=== PATIENT | male | born 1950 | race Caucasian/White ===

== ENCOUNTER 2025-03-05 07:35 | Inpatient (IN) ==
[2025-03-05] MEDS: SODIUM CHLORIDE 0.9% 1,000 ML IV ONE (08:12)
--- NOTE | 2025-03-05 08:13 | Emergency Department Note ---
Impression & Plan AMELIE (acute kidney injury), Weakness, Nausea, History of hepatocellular carcinoma ED Provider Note NAME: KIMBERLY CHANDLER AGE: 74 SEX: M : 1950 ARRIVES VIA: Walk-In INFORMANT: Patient ED PROVIDER(S): Fahad Varela DO CHIEF COMPLAINT: Unable to urinate HPI: Patient is a 74-year-old male with a past medical history of UTI, alcohol use disorder, hepatocellular cancer stage IV with cirrhosis who presents to the ER as he has been unable to urinate for the past 24 hours. He has not been eating or drinking much for the past 72 hours. He denies any headache or change in vision. No chest pain or shortness of breath. He does feel weak. No dysuria, urgency or frequency. No other exacerbating or remitting factors. ADDITIONAL HISTORY OBTAINED: is present at bedside notes that he has become weaker recently. Chronic Medical/Social Conditions Affecting Care: Per HPI PAST MEDICAL HISTORY:See Below PAST SURGICAL HISTORY:See Below FAMILY HISTORY:See Below SOCIAL HISTORY:See Below HOME MEDICATIONS:See Below ALLERGIES:See Below VITALS:See Below PHYSICAL EXAMINATION: GENERAL: Sitting up in bed, alert, well appearing, well nourished, no distress, non-toxic EYE EXAM: normal conjunctiva. PERRL and EOM's grossly intact. OROPHARYNX: mucous membranes are moist NECK: supple, no nuchal rigidity, no adenopathy, non-tender LUNGS: Clear to auscultation. Normal chest wall mechanics HEART: no murmurs, S1 normal and S2 normal ABDOMEN: abdomen soft, non-tender, normo-active bowel sounds, no masses, no rebound or guarding. UPPER EXTREMITIES: upper extremities are grossly normal. LOWER EXTREMITIES: No pitting edema. NEURO EXAM: Normal sensorium, cranial nerves II-XII grossly intact, normal speech, no gross weakness of arms, no gross weakness of legs. MEDICAL DECISION MAKING: Patient is a 74-year-old male who presents ER for the above-stated complaint. IV was established and blood work was obtained. Labs show no significant leukocytosis or anemia. INR at 1.5. BMP with creatinine 3.9 up from baseline of 1.5. LFTs and bilirubin were unremarkable. Lipase was normal. Patient was given IV fluids. Discussed case with the hospitalist as well as her care managers for further evaluation management treatment. Consults/Care Managements Discussions: Per MDM Triage Nursing notes reviewed. Limited review of prior medical records performed Vital Signs: reviewed and remarkable for no significant abnormalities Differential diagnosis: Differential diagnoses includes but is not limited to gastritis, peptic ulcer disease, GERD, gallbladder disease, pancreatitis, small bowel obstruction, appendicitis, diverticulitis, hernia, urinary tract infection, torsion, perforation, trauma, infectious. ER treatment provided: See below Diagnostics interpreted by me include EKG and cardiac monitoring as listed below: -Cardiac Monitoring: An order was placed for continuous cardiac monitoring. The monitor shows a rate of 70 with sinus rhythm. -ECG: Sinus rhythm rate of 59 Normal axis No PVCs QTc 459 -Laboratory studies:Interpreted by me as stated above in MDM and shown below. Imaging studies: Xrays: As interpreted by me:none CTs show: none Procedures:none Critical Care: None Past Med/Surg History Problem List (Updated 03/05/25 @ 12:54 by Fahad Varela DO) Nausea (Acute) Weakness (Acute) AMELIE (acute kidney injury) (Acute) Diarrhea Nausea & vomiting AMELIE (acute kidney injury) UTI (urinary tract infection) (Acute) Alcohol use disorder in remission Hepatocellular carcinoma Osteoporosis Adenomatous polyps Right lumbar radiculopathy Hip pain, right Spinal cord stimulator status Initially placed 03/2015 Battery replacement 09/26/2021 Alcoholic cirrhosis (Chronic) follows with [facility] Kilgore's esophagus (Chronic) Benign prostatic hyperplasia with urinary obstruction and other lower urinary tract symptoms (Chronic) Bilateral hearing loss (Chronic) Colonic polyp (Chronic) HTN (hypertension) (Chronic) controlled, stable History of hepatocellular carcinoma (Chronic) tx arterial chemoembolization 2016, wedge resection 2019 and again with arterial chemoembolization 04/2021, follows with [facility] q 6 months. "mild coagulopathy with INR 1.3" Spinal stenosis, lumbar (Chronic) Medical History History of hepatocellular carcinoma Osteoporosis Liver cirrhosis Kilgore esophagus Spinal stenosis Spinal cord stimulator status Arthritis BPH (benign prostatic hyperplasia) GERD (gastroesophageal reflux disease) Port-A-Cath in place Neuropathy Hypertension Liver cancer History of transfusion History of seizure History of chemotherapy Surgical History Hx of left cataract extraction Hx of right cataract extraction History of lumbar surgery History of colonoscopy with polypectomy History of tooth extraction History of resection of liver H/O esophagogastroduodenoscopy [place] teeth removed S/P cholecystectomy Family History Father Prostate cancer Diabetes Cancer, Onset Age: 69 Hypertension Brother Cancer, Onset Age: 68 Mother Myocardial infarction, Onset Age: 51 Grandmother (Maternal) Natural with probable cause suspected, Onset Age: 80 Grandfather (Maternal) Myocardial infarction, Onset Age: 50 Grandmother (Paternal) Natural deaths, Onset Age: 80 Other No family history of adverse response to anesthesia Denies family history of Ovarian cancer Breast cancer Colorectal cancer Social History Smoking Status: Former smoker Tobacco Type: Cigarettes Age Started Using Tobacco: 16; Age Quit Using Tobacco: 61; packs per day: 0; Cigarettes Per Day: 2-3 packs per day; Second Hand Exposure: No; Do You Dip or Chew Tobacco: No; Hx Alcohol Use: Yes (quit 2013) Hx Substance Use: No Preferred Language: French Communication Ability: Effective Visual Impairment: Limited Hearing Ability: Use of Hearing Aid Adult Daycare Coordinator Required: No Beliefs That Will Affect Care: None marital status: Current Living Situation: Spouse Current Living Situation Comment: Lives with and son current occupational status: retired How many Children do You have: 1 Feels Safe at Home: Yes Childhood Exposure to Second-Hand Smoke: Yes Diet: regular caffeine: Yes during the past year weight has: remained stable Dental Care, Regularly: Yes Physical Activity Frequency: 5-6 Times per Week Physical Activity Frequency Comment: Goes to gym twice a day Seatbelt Use: always Sunscreen Use: No Do you think of yourself as: straight/heterosexual Gender Identity: Male Assistive Devices: Denture - Upper, Denture - Lower, Glasses and Hearing Aid - Bilateral Allergies Allergies Allergy/AdvReac Type Severity Reaction Status Date / Time bee venom protein (honey bee) Allergy Severe Anaphylaxis Verified 03/04/25 12:51 Home Meds Home Medications Medication Instructions Recorded Confirmed finasteride 5 mg tablet 5 mg PO QAM 06/28/20 03/05/25 multivitamin 1 tab PO QAM 06/28/20 03/05/25 vit A 1,000 unit-C 60 mg-E 30 1 tab PO QAM 05/08/21 03/05/25 unit-zinc oxid-selenium AA-copper tablet (Vision Formula(J-J-Y-Zn-Se-Cu)) omeprazole 20 mg capsule,delayed 20 mg PO QAM 08/16/21 03/05/25 release baclofen 10 mg tablet 10 mg PO HS PRN cramps 03/06/22 03/05/25 alendronate 70 mg tablet 70 mg PO Q7D 09/04/22 03/05/25 cholecalciferol (vitamin D3) 25 25 mcg PO QAM 09/04/22 03/05/25 mcg (1,000 unit) capsule gabapentin 300 mg capsule 300 mg PO TID PRN Other 09/02/24 03/05/25 lisinopril 20 mg tablet 20 mg PO BID 09/02/24 03/05/25 amlodipine 10 mg tablet 10 mg PO QAM 10/27/24 03/05/25 lenvatinib 4 mg capsule (Lenvima) 12 mg PO .DAILY@NOON 01/28/25 03/05/25 hydrochlorothiazide 12.5 mg tablet 12.5 mg PO QAM 02/20/25 03/05/25 ondansetron 8 mg disintegrating 8 mg PO Q8H 03/04/25 03/05/25 tablet Results & Data (ED) Vital Signs Vital Signs - 24 hr 03/05/25 07:42 03/05/25 07:46 03/05/25 08:36 Temperature 36.1 C L Temperature Source Temporal Artery Scan Pulse Rate 69 58 L Respiratory Rate 16 Respiratory Effort / Characteristics Non-Labored Spontaneous Respiratory Depth Normal Respiratory Pattern Regular Blood Pressure 94/62 L Blood Pressure Mean 72 Pulse Oximetry 97 98 Oxygen Delivery Method Room Air Room Air Sepsis Recent Fever Within 48 Hours No Sepsis New/Unexplained Change in Mental Status N/A Sepsis Action Taken by Nursing No Action Required Laboratory Data 03/05/25 08:14 03/05/25 08:14 Lab Results 03/05/25 Range/Units 08:14 WBC 9.89 (4.8-10.8) K/ul RBC 4.51 L (4.70-6.10) M/uL Hgb 15.1 (14.0-18.0) g/dl Hct 44.7 (42.0-52.0) % MCV 99.1 (80.0-100.0) fL MCH 33.5 (25.0-34.0) pg MCHC 33.8 (32.0-36.0) g/dL RDW Std Deviation 59.2 H (36.4-46.3) fL RDW Coeff of Reena 16.5 H (11.5-14.5) % Plt Count 181 (130-400) K/uL MPV 10.5 (9.4-12.4) fL Immature Gran % (Auto) 0.3 % Neut % (Auto) 74.9 % Lymph % (Auto) 15.0 % [place] % (Auto) 9.1 % Eos % (Auto) 0.0 % Baso % (Auto) 0.7 % Neut # (Auto) 7.41 H (1.40-6.50) K/uL Lymph # (Auto) 1.48 (1.20-3.40) K/uL [place] # (Auto) 0.90 H (0.11-0.59) K/uL Eos # (Auto) 0.00 (0.00-0.50) K/uL Baso # (Auto) 0.07 (0.00-0.20) K/uL Immature Gran # (Auto) 0.03 (0.01-0.20) K/uL Sodium 139 (136-145) mmol/L Potassium 4.7 (3.5-5.1) mmol/L Chloride 105 (98-107) mmol/L Carbon Dioxide 24 (21-32) mmol/L Anion Gap 10 (3-11) BUN 37 H (6-23) mg/dl Creatinine 3.90 H D (0.6-1.4) mg/dl Est Cr Clr Drug Dosing Not Reportable eGFR 15.33 BUN/Creatinine Ratio 9.5 L (10-20) Glucose 98 (70-99(Fasting)) mg/dl Calcium 8.9 (8.6-10.3) mg/dl Total Bilirubin 1.1 H (0.2-1.0) mg/dl AST 42 H (13-39) U/L ALT 40 (7-52) U/L Alkaline Phosphatase 161 H (34-104) U/L Total Protein 7.8 (6.0-8.3) gm/dl Albumin 3.2 L (3.4-5.0) gm/dl Globulin 4.6 H (2.5-4.0) gm/dl Albumin/Globulin Ratio 0.7 L (0.9-2) Lipase 10 L (11-82) U/L Administered Medications Discontinued Medications Sodium Chloride (Nss) 1,000 mls @ 999 mls/hr IV .Q1H1M ONE Stop: 03/05/25 08:57 Last Infusion: 03/05/25 09:35 Dose: Infused Documented By: Admin: 03/05/25 08:12 Dose: 999 mls/hr Documented By: GUNNER Lactated Ringer's (Lr) 1,000 mls @ 999 mls/hr IV .Q1H1M ONE Stop: 03/05/25 10:45 Last Infusion: 03/05/25 11:09 Dose: Infused Documented By: Admin: 03/05/25 10:06 Dose: 999 mls/hr Documented By: GUNNER Sodium Chloride (Nss) 500 mls @ 999 mls/hr IV .Q31M ONE Stop: 03/05/25 10:38 Last Infusion: 03/05/25 12:13 Dose: Infused Documented By: Admin: 03/05/25 11:35 Dose: 999 mls/hr Documented By: GUNNER Discharge Plan Visit Data Chief Complaint: Unable to Void Stated Complaint: CANCER PATIENT,UNABLE TO VOID ED Provider: Fahad Varela Discharge Problem: AMELIE (acute kidney injury), Weakness, Nausea, History of hepatocellular carcinoma Patient Disposition: Admitted As Inpatient Discharge Instructions Interventions: ED Discharge Assessment Last Done: 03/05/25 12:42
[2025-03-05 08:26] LABS: Basophils # (auto) 0.07 K/uL (0.00-0.20); Basophils % (auto) 0.7 %; Hematocrit (blood only) 44.7 % (42.0-52.0); Hemoglobin 15.1 g/dl (14.0-18.0); Immature Granulocytes # (auto) 0.03 K/uL (0.01-0.20); Immature Granulocytes % (auto) 0.3 %; Lymphocytes # (auto) 1.48 K/uL (1.20-3.40); Mean Corpuscular Hemoglobin 33.5 pg (25.0-34.0); Mean Corpuscular Hgb Conc 33.8 g/dL (32.0-36.0); Mean Corpuscular Volume 99.1 fL (80.0-100.0); Mean Platelet Volume 10.5 fL (9.4-12.4); Monocytes % (auto) 9.1 %; Neutrophils # (auto) 7.41 K/uL (1.40-6.50); Neutrophils % (auto) 74.9 %; Platelet Count 181 K/uL (130-400); RDW Coefficient of Variation 16.5 % (11.5-14.5); RDW Standard Deviation 59.2 fL (36.4-46.3); Red Blood Count 4.51 M/uL (4.70-6.10); White Blood Count 9.89 K/ul (4.8-10.8)
[2025-03-05 08:45] LABS: Alanine Aminotransferase 40 U/L (7-52); Albumin Globulin Ratio 0.7 (0.9-2); Albumin Level 3.2 gm/dl (3.4-5.0); Alkaline Phosphatase 161 U/L (34-104); Anion Gap 10 (3-11); Aspartate Aminotransferase 42 U/L (13-39); BUN Creatinine Ratio 9.5 (10-20); Bilirubin,Total 1.1 mg/dl (0.2-1.0); Blood Urea Nitrogen 37 mg/dl (6-23); Calcium 8.9 mg/dl (8.6-10.3); Carbon Dioxide 24 mmol/L (21-32); Chloride 105 mmol/L (98-107); Globulin 4.6 gm/dl (2.5-4.0); Glucose 98 mg/dl (70-99(Fasting)); Lipase 10 U/L (11-82); Potassium 4.7 mmol/L (3.5-5.1); Sodium 139 mmol/L (136-145); Total Protein 7.8 gm/dl (6.0-8.3)
[2025-03-05] MEDS: LACTATED RINGER'S 1,000 ML IV ONE (10:06)
--- NOTE | 2025-03-05 10:31 | History & Physical Report ---
Date of Service March 05, 2025 Assessment & Plan (1) AMELIE (acute kidney injury): (2) Hepatocellular carcinoma: (3) Nausea & vomiting: (4) Diarrhea: (5) Benign prostatic hyperplasia with urinary obstruction and other lower urinary tract symptoms: Plan This is a 74-year-old gentleman with past medical history of hepatocellular carcinoma, cirrhosis, hypertension, BPH who presented to the emergency department on with a chief complaint of unable to urinate. While in the emergency department, patient was found to have an AMELIE with a creatinine of 3.90. His CBC was stable with no leukocytosis and no anemia. His electrolytes were stable. LFTs were at his baseline. Labs pending include a lactate, PT/INR to calculate a MELD score, blood cultures, stool studies, and a repeat BMP sent for 1400. #AMELIE/BPH Baseline creatinine ~ 0.8-1.0, has been above baseline for past month. Likely secondary to poor oral intake and recent diarrhea. Creatinine on admission 3.90, repeat pending at 1400 UC pending. BC/Lactate pending (patient w/ hypotension in ED) s/p 2 IVF boluses, continue LR @ 80ml/hr x 2 bags upon admission to promote gentle fluid rehydration. Bladder scan, if retaining urine place Birch catheter. Hold Lisinopril, Amlodipine, and HCTZ on admission. Continue Finasteride #Diarrhea/Vomiting Likely secondary to immunotherapy agent. GI panel/C diff pending --> if negative may use Imodium prn Clear liquid diet, advance as tolerated. Consider dietitian consult due to poor PO intake at home Continue Zofran q8h for nausea #HCC/Cirrhosis [facility]. 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 Per , patient receives MRI q 3 months w/ oncology. LFTs stable for patient - > TB 1.1, AST/ALT 42/40, AP 161 Await PT/INR to calculate updated MELD. Chronic conditions: GERD: PPI HTN: home meds on home secondary to hypotension. DVT prophylaxis: heparin (plt 181) Code: DNR/DNI updated at bedside Case discussed w/ Dr. Mejias at time of admission. History of Present Illness Primary Care Provider: Ivette Campos DO This is a 74-year-old gentleman with past medical history of hepatocellular carcinoma, cirrhosis, hypertension, BPH who presented to the emergency department on with a chief complaint of unable to urinate. The patient was seen and examined with his at bedside. Patient reports that for the last about 72 hours he has not been feeling well. He has had decreased oral intake. He states that he is on an immunotherapy agent for his HCC which has caused him to have nausea, vomiting, and diarrhea. He states that yesterday he had several episodes of watery diarrhea and did vomit 1 time. He continues to feel nauseous occasionally. He denies any abdominal pain or low back pain. He denies any chest pain or shortness of breath. Denies any lower extremity edema. 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 He states that he has only had to undergo paracentesis 1 time and this was many years ago. Patient also has been complaining of a rash in his inguinal area that he recently noticed. Patient was recently in the emergency department on 02/20 for similar symptoms. At that time he was given 1 L of fluids. Blood cultures were obtained which were found to be negative and elevated lactate was found to be at 2.3. He eventually was able to urinate was found to have a UTI. He was discharged home on Augmentin. Over this past 2 weeks he has been feeling well up until the last 72 hours. He does follow with [facility] for management of his cirrhosis. He does also follow closely with his PCP for management of his blood pressure and lab work. Patient does have a POLST form and is DNR. While in the emergency department, patient was found to have an AMELIE with a creatinine of 3.90. His CBC was stable with no leukocytosis and no anemia. His electrolytes were stable. LFTs were at his baseline. Labs pending include a lactate, PT/INR to calcualte a MELD score, blood cultures, stool studies, and a repeat BMP sent for 1400. Allergies Allergy/AdvReac Type Severity Reaction Status Date / Time bee venom protein (honey bee) Allergy Severe Anaphylaxis Verified 03/04/25 12:51 Home Medications Medication Instructions Recorded Confirmed Type finasteride 5 mg tablet 5 mg PO QAM 06/28/20 03/05/25 History multivitamin 1 tab PO QAM 06/28/20 03/05/25 History vit A 1,000 unit-C 60 mg-E 30 1 tab PO QAM 05/08/21 03/05/25 History unit-zinc oxid-selenium AA-copper tablet (Vision Formula(J-I-D-Zn-Se-Cu)) omeprazole 20 mg capsule,delayed 20 mg PO QAM 08/16/21 03/05/25 History release baclofen 10 mg tablet 10 mg PO HS PRN cramps 03/06/22 03/05/25 History alendronate 70 mg tablet 70 mg PO Q7D 09/04/22 03/05/25 History cholecalciferol (vitamin D3) 25 25 mcg PO QAM 09/04/22 03/05/25 History mcg (1,000 unit) capsule gabapentin 300 mg capsule 300 mg PO TID PRN Other 09/02/24 03/05/25 History lisinopril 20 mg tablet 20 mg PO BID 09/02/24 03/05/25 History amlodipine 10 mg tablet 10 mg PO QAM 10/27/24 03/05/25 History lenvatinib 4 mg capsule (Lenvima) 12 mg PO .DAILY@NOON 01/28/25 03/05/25 History hydrochlorothiazide 12.5 mg tablet 12.5 mg PO QAM 02/20/25 03/05/25 History ondansetron 8 mg disintegrating 8 mg PO Q8H 03/04/25 03/05/25 History tablet Past Med/Surg History Problem List (Updated 03/05/25 @ 10:31 by Bety Olivo PA-C) Diarrhea Nausea & vomiting AMELIE (acute kidney injury) UTI (urinary tract infection) (Acute) Alcohol use disorder in remission Hepatocellular carcinoma Osteoporosis Adenomatous polyps Right lumbar radiculopathy Hip pain, right Spinal cord stimulator status Initially placed 03/2015 Battery replacement 09/26/2021 Alcoholic cirrhosis (Chronic) follows with [facility] Kilgore's esophagus (Chronic) Benign prostatic hyperplasia with urinary obstruction and other lower urinary tract symptoms (Chronic) Bilateral hearing loss (Chronic) Colonic polyp (Chronic) HTN (hypertension) (Chronic) controlled, stable History of hepatocellular carcinoma (Chronic) tx arterial chemoembolization 2016, wedge resection 2019 and again with arterial chemoembolization 04/2021, follows with [facility] q 6 months. "mild coagulopathy with INR 1.3" Spinal stenosis, lumbar (Chronic) Medical History History of hepatocellular carcinoma Osteoporosis Liver cirrhosis Kilgore esophagus Spinal stenosis Spinal cord stimulator status Arthritis BPH (benign prostatic hyperplasia) GERD (gastroesophageal reflux disease) Port-A-Cath in place Neuropathy Hypertension Liver cancer History of transfusion History of seizure History of chemotherapy Surgical History Hx of left cataract extraction Hx of right cataract extraction History of lumbar surgery History of colonoscopy with polypectomy History of tooth extraction History of resection of liver H/O esophagogastroduodenoscopy [place] teeth removed S/P cholecystectomy Family History Father Prostate cancer Diabetes Cancer, Onset Age: 69 Hypertension Brother Cancer, Onset Age: 68 Mother Myocardial infarction, Onset Age: 51 Grandmother (Maternal) Natural with probable cause suspected, Onset Age: 80 Grandfather (Maternal) Myocardial infarction, Onset Age: 50 Grandmother (Paternal) Natural deaths, Onset Age: 80 Other No family history of adverse response to anesthesia Denies family history of Ovarian cancer Breast cancer Colorectal cancer Social History Smoking Status: Former smoker Tobacco Type: Cigarettes Age Started Using Tobacco: 16; Age Quit Using Tobacco: 61; packs per day: 0; Cigarettes Per Day: 2-3 packs per day; Second Hand Exposure: No; Do You Dip or Chew Tobacco: No; Hx Alcohol Use: Yes (quit 2013) Hx Substance Use: No Preferred Language: Algerian Communication Ability: Effective Visual Impairment: Limited Hearing Ability: Use of Hearing Aid Can Line Operator Required: No Beliefs That Will Affect Care: None marital status: Current Living Situation: Spouse Current Living Situation Comment: Lives with and son current occupational status: retired How many Children do You have: 1 Feels Safe at Home: Yes Childhood Exposure to Second-Hand Smoke: Yes Diet: regular caffeine: Yes during the past year weight has: remained stable Dental Care, Regularly: Yes Physical Activity Frequency: 5-6 Times per Week Physical Activity Frequency Comment: Goes to gym twice a day Seatbelt Use: always Sunscreen Use: No Do you think of yourself as: straight/heterosexual Gender Identity: Male Assistive Devices: Denture - Upper, Denture - Lower, Glasses and Hearing Aid - Bilateral Physical Exam Constitutional: WD/WN, vitals as above Eyes: PERRL, conjunctivae normal, anicteric sclerae ENMT: external ear and nose normal, oropharynx normal Respiratory: normal respiratory effort, lungs clear to auscultation Cardiovascular: RRR, no murmur, no edema Gastrointestinal (Abdomen): normal bowel sounds, soft, nontender, no hepatosplenomegaly Neurologic: PERRL, EOMI, accommodation nl, no face palsy, no dysarthria Psychiatric: A+Ox3, euthymic affect Results & Data Results & Data Vital Signs (Past 12 Hours) Vital Signs Temp Pulse Resp BP Pulse Ox O2 Del Method 03/05/25 08:36 58 L 03/05/25 07:46 98 Room Air 03/05/25 07:42 36.1 C L 69 16 94/62 L 97 Room Air Code Status & VTE Plan VTE Prophylaxis Plan VTE Prophylaxis will be ordered: Yes Supervising Physician Co-Signing Physician Notes I have personally seen, evaluated and examined the patient. I have also personally discussed the management of the patient with the resident physician/ROSA ELENA and I agree with the exam findings documented in the history and physical examination and the documented assessment and plan unless otherwise stated below. Brief Exam: In general very pleasant 74-year-old male who is alert and oriented x 3 at time of exam he interacts appropriately and pleasantly at the time of my examination is accompanied by his . His last watery diarrhea was last evening his last vomiting was yesterday evening. He did tolerate his oral medications this morning with some orange crushed soda. HEENT: Normocephalic atraumatic with dry mucous membranes. Heart: Regular rate and rhythm I do not appreciate murmur or ectopy or rub. Lungs: Clear bilaterally. Abdomen: Soft nontender positive and actually mildly hyperactive bowel sounds. No appreciable organomegaly or abdominal bruits. Extremities: Intact with no clubbing cyanosis or edema some mild changes of venous varicosities-chronic. Neurologically: Alert and oriented x 3 in no acute distress with no focal deficit. Assessment/plan: As described above. Hydrate aggressively. Monitor renal function closely. Bladder scan if not voided by 12 noon. I discussed per sonally with registered nurse. Check a stat lactic acid level. Check stools for C. difficile given recent antibiotic exposure if ongoing watery diarrhea. Clear liquids for now. Entertain nephrology consultation if renal function does not improve with aggressive hydration. Please refer to orders for further planning. PG Care Time/CCT Total # of Minutes Spent Total Time Spent with Patient: Total time spent is greater than 50% in coordination of care (as documented) at patient's floor/unit and/or counseling patient: Coding Level of Care Code 18000 INT INP/OBS CARE 75MIN Diagnoses AMELIE (acute kidney injury) N17.9 Hepatocellular carcinoma C22.0 Nausea & vomiting R11.2 Diarrhea R19.7 Benign prostatic hyperplasia with urinary obstruction and other lower urinary tract symptoms N40.1; N13.8
--- NOTE | 2025-03-05 10:35 | Electrocardiogram Report ---
Test Reason : Blood Pressure : */* mmHG Vent. Rate : 59 BPM Atrial Rate : 59 BPM P-R Int : 174 ms QRS Dur : 86 ms QT Int : 464 ms P-R-T Axes : 72 75 72 degrees QTcB Int : 459 ms Sinus bradycardia Otherwise normal ECG When compared with ECG of 20-Feb-2025 10:47, No significant change was found Confirmed by Eloy Meza ([id number]) on 03/05/2025 10:34:31 AM Referred By: Confirmed By: Eloy Meza
[2025-03-05 11:11] LABS: INR 1.5 (0.9-1.1); Prothrombin Time 15.8 Seconds (9.0-12.0)
[2025-03-05] MEDS: SODIUM CHLORIDE 0.9% 500 ML IV ONE (11:35)
[2025-03-05] MEDS ORDERED: ACETAMINOPHEN 325 MG TAB PO PRN (12:40)
[2025-03-05] MEDS: LACTATED RINGER'S 1,000 ML IV SCH (13:48)
[2025-03-05 14:33] LABS: Appearance Urine Cloudy (Clear); Bacteria Urine Automated None Seen (None Seen); Bilirubin Urine Negative (Negative); Blood Urine Negative (Negative); Cast Urine Automated >20 /lpf (0-2); Color Urine Dark Yellow; Glucose Urine UA Negative (Negative); Ketones Urine Negative (Negative); Leukocyte Esterase Urine 1+ (Negative); Nitrite Urine Negative (Negative); Protein Urine 2+ (Negative); RBC Urine Automated 0-2 /hpf (0-2); Specific Gravity Urine 1.014 (1.000-1.030); Urobilinogen Urine Negative (Negative); WBC Urine Automated 21-50 /hpf (0-5); pH Urine 5.5 (4.5-7.5)
[2025-03-05] MEDS: ONDANSETRON 8MG OD TAB PO SCH (14:55)
[2025-03-05 14:58] LABS: Anion Gap 7 (3-11); BUN Creatinine Ratio 12.9 (10-20); Blood Urea Nitrogen 38 mg/dl (6-23); Calcium 8.1 mg/dl (8.6-10.3); Carbon Dioxide 24 mmol/L (21-32); Chloride 108 mmol/L (98-107); Glucose 130 mg/dl (70-99(Fasting)); Potassium 4.3 mmol/L (3.5-5.1); Sodium 139 mmol/L (136-145)
[2025-03-05] MEDS: SODIUM CHLORIDE 0.9% 1,000 ML IV SCH (15:05)
[2025-03-05] MEDS: cefTRIAXone SODIUM 1,000 MG/50 ML BAG IV SCH (16:15)
[2025-03-05 18:26] LABS: Adenovirus F 40/41 PCR Not Detected (NotDetected); Astrovirus PCR Not Detected (NotDetected); Campylobacter PCR Not Detected (NotDetected); Cryptosporidium PCR Not Detected (NotDetected); Cyclospora cayetanensis PCR Not Detected (NotDetected); Entamoeba histolytica PCR Not Detected (NotDetected); Enteroaggregative E.coli(EAEC) Not Detected (NotDetected); Enteropathogenic E.coli (EPEC) Not Detected (NotDetected); Enterotoxigenic E.coli (ETEC) Not Detected (NotDetected); Giardia lamblia PCR Not Detected (NotDetected); Norovirus GI/GII PCR Not Detected (NotDetected); Plesiomonas shigelloides PCR Not Detected (NotDetected); Rotavirus A PCR Not Detected (NotDetected); Salmonella PCR Not Detected (NotDetected); Sapovirus PCR Not Detected (NotDetected); Shiga-like Toxin E.coli (STEC) Not Detected (NotDetected); Shigella/Enteroinvasive E.coli Not Detected (NotDetected); Vibrio cholerae PCR Not Detected (NotDetected); Vibrio species PCR Not Detected (NotDetected); Yersinia enterocolitica PCR Not Detected (NotDetected)
[2025-03-05] MEDS: Patient's HEIGHT &/or WEIGHT Needed STA (20:46)
[2025-03-05] MEDS: HEPARIN SOD 5,000 UNIT/0.5 ML VIAL SQ SCH (21:22)
[2025-03-05] MEDS: NYSTATIN POWDER 15GM BTL EXT SCH (21:24)
[2025-03-06 06:07] LABS: Hematocrit (blood only) 40.4 % (42.0-52.0); Hemoglobin 13.2 g/dl (14.0-18.0); Mean Corpuscular Hemoglobin 33.2 pg (25.0-34.0); Mean Corpuscular Hgb Conc 32.7 g/dL (32.0-36.0); Mean Corpuscular Volume 101.5 fL (80.0-100.0); Mean Platelet Volume 10.6 fL (9.4-12.4); Platelet Count 140 K/uL (130-400); RDW Coefficient of Variation 15.8 % (11.5-14.5); RDW Standard Deviation 59.2 fL (36.4-46.3); Red Blood Count 3.98 M/uL (4.70-6.10); White Blood Count 5.88 K/ul (4.8-10.8)
[2025-03-06 06:22] LABS: BUN Creatinine Ratio 16.8 (10-20); Creatinine Clr Calc Pharmacy 29.7 ml/min; Potassium 4.3 mmol/L (3.5-5.1)
[2025-03-06] MEDS: FINASTERIDE 5 MG TAB PO SCH (09:18)
[2025-03-06] MEDS: PANTOprazole 40 MG TAB PO SCH (09:18)
[2025-03-06] MEDS ORDERED: HYDROCORTISONE ACETATE 25 MG SUPP PR PRN (09:51)
--- NOTE | 2025-03-06 12:30 | Hospitalist Progress Note ---
Date of Service March 06, 2025 Assessment & Plan (1) AMELIE (acute kidney injury): (2) Hepatocellular carcinoma: (3) Nausea & vomiting: (4) Diarrhea: (5) Benign prostatic hyperplasia with urinary obstruction and other lower urinary tract symptoms: Plan This is a 74-year-old gentleman with past medical history of hepatocellular carcinoma, cirrhosis, hypertension, BPH who presented to the emergency department on with a chief complaint of unable to urinate. While in the emergency department, patient was found to have an AMELIE with a creatinine of 3.90. His CBC was stable with no leukocytosis and no anemia. His electrolytes were stable. LFTs were at his baseline. #AMELIE/BPH Baseline creatinine 0.81.0 Send starting immunotherapy creatinine has risen and patient has had poor p.o. intake. Creatinine is ranged from 1.2 from 13.9 recently Admitting creatinine 2.34, gene to 3.9, and now downtrending Continue IVFs and fluid support until p.o. intake improves. Avoid saline due to hyperchloremia/acidosis Hypertension Antihypertensives held for both AMELIE and borderline hypovolemia #Diarrhea/Vomiting Suspect due to immunotherapy C. difficile negative Boost, clears. Advance as tolerated. Patient does have Ensure recovered and is attempting to maximize protein shakes along with meals for nutrition #HCC/Cirrhosis Follows w/ [facility] for treatment. 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 Per , patient receives MRI q 3 months w/ oncology. LFTs stable for patient - > TB 1.1, AST/ALT 42/40, AP 161 INR 1.5 Has follow-up March 16 with cancer center. Red blood per rectum Dark stool although not black. No history of epigastric pain or ulcers. Some hemoglobin drop in the setting of immunotherapy Dark stool with bright red blood streak on side suspicious for hemorrhoids which patient has a history of. Notes straining with his bowel movement Anusol ordered. Hemoglobin trended. Vital signs stable PT/OT pending. Clinically progressing Chronic conditions: GERD: PPI DVT prophylaxis: heparin Code: DNR/DNI Admission and Anticipated Discharge Date Admission Date: March 05, 2025 Subjective Teofilo is seen at the bedside this morning with his present. He reports he feels better since his immunotherapy has been held but notes that this is his second round of severe nausea, vomiting, poor appetite and p.o. intake, fatigue and generally feeling unwell. He notes this happened recently and he was diagno sed with a UTI and improved but symptoms recurred in the last few days. At bedside reassessment he reports he does feel much better but still not 100%. He also had a dark bowel movement which was not black but was dark with some bright red blood on the side. He knows he does have hemorrhoids and was straining to have a bowel movement and still feels dehydrated. Denies lightheadedness dizziness chest pain chest pressure. He and his do express some concerns over his tolerance of immunotherapy and notes that at first it was good and he is still able to be functional, mow grass etc. but his current weakness and level debilitation make them question whether it is worth it. They do have a follow-up with their oncologist next Saturday, did discuss various approaches to malignancy and that therapy is challenging at best is a temporary impact to quality of life to either attempt to extend life or reach a period of improved quality. Alternatively discussed that if he finds that the extension to his life or quality of life detriment from treatments are not worth it then could pursue a more palliative care approach if that was more within their goals. Patient is are appreciative of this conversation. They report they agree with the current plan of care, but will discuss prognostication and his tolerance of his therapy with the cancer center at the next follow-up Physical Exam Physical Exam: General: A&Ox3. NAD. Cooperative. HEENT: Atraumatic, normocephalic. Vis membranes tacky. Thorax: Port present without erythema/warmth/tenderness Pulm: CTAB A&P. -wheezes, -rales, -rhonchi. Symmetrical chest rise. No increase in work of breathing. No respiratory distress. Cardiac: RRR, -mrg. Radial pulses intact and symmetrical. Abdominal: Nontender, nondistended, soft. BS present. Results & Data Results & Data Vital Signs (Past 12 Hours) Vital Signs Temp Pulse Pulse Resp BP Pulse Ox O2 Del Method 03/06/25 10:45 36.4 C L 59 L 16 106/61 95 Room Air 03/06/25 07:41 36.4 C L 59 L 16 118/64 94 Room Air 03/06/25 07:11 63 03/06/25 04:00 36.5 C 63 18 117/65 94 Room Air PG Care Time/CCT Total # of Minutes Spent Total Time Spent with Patient: Total time spent is greater than 50% in coordination of care (as documented) at patient's floor/unit and/or counseling patient: Coding Level of Care Code 61844 SUB INP/OBS CARE 3/50MIN Diagnoses AMELIE (acute kidney injury) N17.9 Hepatocellular carcinoma C22.0 Nausea & vomiting R11.2 Diarrhea R19.7 Benign prostatic hyperplasia with urinary obstruction and other lower urinary tract symptoms N40.1; N13.8
[2025-03-07] MEDS ORDERED: CEFDINIR 300 MG CAP PO SCH
[2025-03-07 06:07] LABS: Basophils # (auto) 0.01 K/uL (0.00-0.20); Basophils % (auto) 0.2 %; Hemoglobin 12.5 g/dl (14.0-18.0); Immature Granulocytes # (auto) 0.02 K/uL (0.01-0.20); Immature Granulocytes % (auto) 0.4 %; Lymphocytes # (auto) 0.95 K/uL (1.20-3.40); Lymphocytes % (auto) 17.9 %; Mean Corpuscular Hemoglobin 33.5 pg (25.0-34.0); Mean Corpuscular Hgb Conc 32.9 g/dL (32.0-36.0); Mean Corpuscular Volume 101.9 fL (80.0-100.0); Mean Platelet Volume 10.1 fL (9.4-12.4); Monocytes # (auto) 0.63 K/uL (0.11-0.59); Monocytes % (auto) 11.9 %; Neutrophils # (auto) 3.69 K/uL (1.40-6.50); Neutrophils % (auto) 69.6 %; Platelet Count 130 K/uL (130-400); RDW Coefficient of Variation 16.4 % (11.5-14.5); RDW Standard Deviation 61.8 fL (36.4-46.3); Red Blood Count 3.73 M/uL (4.70-6.10)
[2025-03-07 06:32] LABS: INR 1.4 (0.9-1.1); Prothrombin Time 14.6 Seconds (9.0-12.0)
[2025-03-07 06:36] LABS: Albumin Globulin Ratio 0.7 (0.9-2); Albumin Level 2.6 gm/dl (3.4-5.0); BUN Creatinine Ratio 18.4 (10-20); Bilirubin,Total 0.4 mg/dl (0.2-1.0); Globulin 3.7 gm/dl (2.5-4.0); Potassium 4.1 mmol/L (3.5-5.1); Total Protein 6.3 gm/dl (6.0-8.3)
--- NOTE | 2025-03-07 07:20 | Discharge Summary ---
Discharge Summary Date of Service March 07, 2025 Principal Dx & Hospital Course #1 = Principal Diagnosis (1) AMELIE (acute kidney injury): (2) Hepatocellular carcinoma: (3) Nausea & vomiting: (4) Diarrhea: (5) Benign prostatic hyperplasia with urinary obstruction and other lower urinary tract symptoms: Plan This is a 74-year-old gentleman with past medical history of hepatocellular carcinoma, cirrhosis, hypertension, BPH who presented to the emergency department on with a chief complaint of unable to urinate. While in the emergency department, patient was found to have an AMELIE with a creatinine of 3.90. His CBC was stable with no leukocytosis and no anemia. His electrolytes were stable. LFTs were at his baseline. To Do as Outpt: 1. Complete 3 additional days of abx for ?UTI with cefdinir 300mg BID to complete 5 day course 2. PPI BID x2 weeks, then daily. GI followup. Monitoring for recurrent GIB discussed w/ pt prior to dc 3. Repeat CBC/BMP within 1 week 4. Continue B12/Folic acid supplementation 5. F/u with Oncology #AMELIE/BPH Baseline creatinine 0.81.0 Since starting immunotherapy creatinine has risen and patient has had poor p.o. intake. Creatinine is ranged from 1.2 from 13.9 recently Admitting creatinine 2.34, gene to 3.9, and then down trended Creatinine continue to improve downtrending to 1.47 with fluids and supportive care. Nausea/vomiting improved and p.o. intake improved. Patient felt nearly completely back to baseline. Was discharged PCP follow-up should have BMP repeat within 1 week Hypertension Antihypertensives held for both AMELIE and borderline hypotension. BP was normal on discharge. May resume lisinopril/HCTZ as outpatient if hypertensive and once creatinine returns to baseline #Diarrhea/Vomiting Suspect due to immunotherapy C. difficile negative Boost, clears. Advance as tolerated. Patient does have Ensure recovered and is attempting to maximize protein shakes along with meals for nutrition #HCC/Cirrhosis - Follows w/ [facility] for treatment. 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 - Per , patient receives MRI q 3 months w/ oncology. - LFTs stable for patient - > TB 1.1, AST/ALT 42/40, AP 161 - INR 1.5 - Has follow-up March 16 with cancer center. Hematochezia Patient was with an episode of dark although not black stool streaking with some bright red blood on strange bowel movements. No history of epigastric pain or ulcers. Some hemoglobin drop in the setting of volume repletion and immunotherapy. Following aggressive fluid resuscitation he did have a drop in his hemoglobin from 15-12.5, recheck 12.3 without ongoing bleeding. MCV was elevated suggestive of some vitamin deficiency. The hematochezia was suspected to be due to hemorrhoids and straining bowel movements. Upper GI bleed could not be definitively ruled out however was thought to be less likely as he did not have a markedly elevated BUN, this was only very slightly elevated and proportional to his AMELIE and improving. 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 PPI therapy was increased to twice daily and close follow-up precautions were discussed. 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 ? UTI Patient with contaminated versus infected urine on admission. This was sent for culture and grew out multiple colonies. He markedly improved following fluids and Rocephin treatment. No evidence of pyelonephritis Low suspicion for clinically UTI however given symptoms similar to prior UTI, risk, and possibly contaminated sample an abbreviated course of antibiotics was completed with 3 additional days of cefdinir twice daily. Patient felt clinically well and back to his normal baseline day of discharge. Return precautions were discussed Admission HPI Per Admitting Provider This is a 74-year-old gentleman with past medical history of hepatocellular carcinoma, cirrhosis, hypertension, BPH who presented to the emergency department on with a chief complaint of unable to urinate. The patient was seen and examined with his at bedside. Patient reports that for the last about 72 hours he has not been feeling well. He has had decreased oral intake. He states that he is on an immunotherapy agent for his HCC which has caused him to have nausea, vomiting, and diarrhea. He states that yesterday he had several episodes of watery diarrhea and did vomit 1 time. He continues to feel nauseous occasionally. He denies any abdominal pain or low back pain. He denies any chest pain or shortness of breath. Denies any lower extremity edema. 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 He states that he has only had to undergo paracentesis 1 time and this was many years ago. Patient also has been complaining of a rash in his inguinal area that he recently noticed. Patient was recently in the emergency department on 02/20 for similar symptoms. At that time he was given 1 L of fluids. Blood cultures were obtained which were found to be negative and elevated lactate was found to be at 2.3. He eventually was able to urinate was found to have a UTI. He was discharged home on Augmentin. Over this past 2 weeks he has been feeling well up until the last 72 hours. He does follow with [facility] for management of his cirrhosis. He does also follow closely with his PCP for management of his blood pressure and lab work. Patient does have a POLST form and is DNR. While in the emergency department, patient was found to have an AMELIE with a creatinine of 3.90. His CBC was stable with no leukocytosis and no anemia. His electrolytes were stable. LFTs were at his baseline. Labs pending include a lactate, PT/INR to calcualte a MELD score, blood cultures, stool studies, and a repeat BMP sent for 1400. Discharge Exam General: A&Ox3. NAD. Cooperative. HEENT: Atraumatic, normocephalic. Vision and hearing grossly intact. MM moist. Thorax: R Port present without erythema/warmth/tenderness Pulm: CTAB A&P. -wheezes, -rales, -rhonchi. Symmetrical chest rise. No increase in work of breathing. No respiratory distress. Cardiac: RRR, -mrg. Radial pulses intact and symmetrical. Abdominal: Nontender, nondistended, soft. BS present. Discharge Plan Discharge Items Patient Disposition: Home - Self-Care Reason For Visit: AMELIE Discharge Diagnosis: Prerenal AMELIE Activity: Resume your previous activity Non-emergency contact: Primary Care Provider Call non-emergency contact if: you have any medication questions, your symptoms worsen and your pain is not controlled Follow-up/Referrals: Ivette Campos DO [Primary Care Provider] - 03/15/25 10:30 am Diet: Regular Addtl Attending Provider Instructions: You were seen in the hospital for nausea/vomiting and a kidney injury suspected due to poor p.o. intake. You have had recurrent symptoms on your immunotherapy. Your immunotherapy was held and you were given fluid hydration and you rapidly clinically improved. Your blood pressure was normal, your kidney function was improving and near but not completely at baseline at time of discharge. You are tolerating a normal diet. You did have a dark bowel movement during admission with some bright red blood streaked on this. Your BUN was very slightly elevated along with your AMELIE but not markedly elevated suggestive of an upper GI bleed. Your hemoglobin recheck was stable on recheck day of discharge. Your red blood cells had a large volume (MCV was greater than 100) suggesting some nutritional deficiency. You have been started on a B12 and folic acid supplement. Your antiacid medicine was switched to Protonix and increased to twice daily for 2 weeks. If you have ongoing bleeding, lightheadedness/dizziness, or black bowel movements please seek medical reattention. Your last colonoscopy in 2021 showed sessile polyps. 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 This was held during admission. You may plan to resume this in ~3 days afte ryou complete your antibiotics, but you should call your oncologist for specific recommendations. If you develop any new or worsening symptoms including fever, chills, sweats, chest pain, chest pressure, difficulty breathing, uncontrolled nausea/vomiting, rash, wheezing, passing out or nearly passing out, bleeding, black/bloody bowel movements, or other new or concerning symptoms please call your primary care physician, or call 911 for re-evaluation in the emergency department if you are very concerned. Pending Studies at Discharge: No Stand-Alone Forms: My [employer], Smoking Cessation Medications and DC Order Prescriptions: New pantoprazole 40 mg tablet,delayed release (DR/EC) 40 mg PO BID 14 Days Qty: 28 0RF mecobalamin (vitamin B12) [B12 Active] 1,000 mcg tablet,chewable 1,000 mcg PO DAILY Qty: 90 0RF folic acid 1 mg tablet 1,000 mcg PO DAILY Qty: 90 0RF cefdinir 300 mg capsule 300 mg PO BID 3 Days Qty: 6 0RF Continued baclofen 10 mg tablet 10 mg PO HS PRN (Reason: cramps) cholecalciferol (vitamin D3) 25 mcg (1,000 unit) capsule 25 mcg PO QAM alendronate 70 mg tablet 70 mg PO Q7D Rx Instructions: 70 mg orally one tab weekly; Vision Formula(Y-H-I-Zn-Se-Cu) 1,000 unit-60 mg-30 unit tablet 1 tab PO QAM gabapentin 300 mg capsule 300 mg PO TID PRN (Reason: Other) ondansetron 8 mg tablet,disintegrating 8 mg PO Q8H Lenvima 4 mg capsule 12 mg PO .DAILY@NOON lisinopril 20 mg tablet 20 mg PO BID multivitamin tablet 1 tab PO QAM finasteride 5 mg tablet 5 mg PO QAM amlodipine 10 mg Tablet 10 mg PO QAM hydrochlorothiazide 12.5 mg tablet 12.5 mg PO QAM Held omeprazole 20 mg capsule,delayed release(DR/EC) 20 mg PO QAM Hold Instructions: Resume on 04/10/25. Discharge Orders: Discharge Order (Routine); Ordered 03/07/25 Ordered By: Eder Butterfield Admission Data Admit Date/Time: 03/05/25 10:04 Attending Provider: Eder Butterfield Admit Provider: Aries Mejias Primary Care Provider: Ivette Campos Other Providers: Aries Mejias Hospital Stay Data Consultations 03/05/25 09:10 ED Decision to Admit Stat Discharge Instructions Given to Patient (Per Discharging Provider) You were seen in the hospital for nausea/vomiting and a kidney injury suspected due to poor p.o. intake. You have had recurrent symptoms on your immunotherapy. Your immunotherapy was held and you were given fluid hydration and you rapidly clinically improved. Your blood pressure was normal, your kidney function was improving and near but not completely at baseline at time of discharge. You are tolerating a normal diet. You did have a dark bowel movement during admission with some bright red blood streaked on this. Your BUN was very slightly elevated along with your AMELIE but not markedly elevated suggestive of an upper GI bleed. Your hemoglobin recheck was stable on recheck day of discharge. Your red blood cells had a large volume (MCV was greater than 100) suggesting some nutritional deficiency. You have been started on a B12 and folic acid supplement. Your antiacid medicine was switched to Protonix and increased to twice daily for 2 weeks. If you have ongoing bleeding, lightheadedness/dizziness, or black bowel movements please seek medical reattention. Your last colonoscopy in 2021 showed sessile polyps. 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 This was held during admission. You may plan to resume this in ~3 days afte ryou complete your antibiotics, but you should call your oncologist for specific recommendations. If you develop any new or worsening symptoms including fever, chills, sweats, chest pain, chest pressure, difficulty breathing, uncontrolled nausea/vomiting, rash, wheezing, passing out or nearly passing out, bleeding, black/bloody bowel movements, or other new or concerning symptoms please call your primary care physician, or call 911 for re-evaluation in the emergency department if you are very concerned. Total Time Total Time Spent Total Time Spent (In Minutes): 45 Coding Level of Care Code 26757 INP/OBS DISCH >30 MIN Diagnoses AMELIE (acute kidney injury) N17.9 Hepatocellular carcinoma C22.0 Nausea & vomiting R11.2 Diarrhea R19.7 Benign prostatic hyperplasia with urinary obstruction and other lower urinary tract symptoms N40.1; N13.8
[2025-03-07 07:55] VITALS: TEMP 97.3
[2025-03-07 11:23] VITALS: BP 150/67; RESP 14; O2SAT 98
[2025-03-07 12:07] LABS: Hematocrit (blood only) 37.6 % (42.0-52.0); Hemoglobin 12.3 g/dl (14.0-18.0)
[2025-03-07 13:33] VITALS: PULSE 64
[2025-03-07] MEDS ORDERED: PANTOprazole 40 MG TAB PO SCH (15:15)
== END 2025-03-07 15:27 | disposition home or self-care (01) | DRG 683 ==
LOC: ED 07:35 → SUATTDRO 10:04 → EDINP 10:04 → 2N 12:42